=== PATIENT | male | born 1955 | race Caucasian/White ===

== ENCOUNTER 2022-04-27 10:30 | Emergency (ER) | payer MEDICARE, MEDICAID, SELFPAY ==
--- NOTE | ~2022-04-27 | CT_ITS ---
EXAMINATION: CT abdomen pelvis wo con DATE: 04/27/2022 13:26 INDICATION: Right flank and back pain TECHNIQUE: Computed tomography (CT) of the abdomen and pelvis was performed without intravenous contr ast. The dose-length product (DLP) was 1037.54 mGy-cm. Automated exposure control and iterative recon struction technique were employed. COMPARISON: None FINDINGS: The lung bases are clear. The heart size is normal. The gallbladder is surgically absent. T he liver, spleen, pancreas, and adrenal glands are normal. The left kidney is unremarkable. There is a 4 mm stone at the right ureterovesicular junction which causes mild right hydroureteronephrosis. Th ere is a small amount of fluid in the right retroperitoneum. Colonic diverticulosis is present withou t evidence of diverticulitis. No pathologically enlarged abdominal or pelvic lymph nodes are identifi ed. No free intraperitoneal gas or evidence of bowel obstruction. The appendix is normal. There is mo derate lumbar spondylosis. IMPRESSION: 1. 4 mm stone in the right ureterovesicular junction causing mild right hydroureteronephrosis. Small volume right retroperitoneal sites of unclear etiology. Reviewed, dictated and finalized at location L. 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 4 mm stone in the right ureterovesicular junction causing mild right hydrour eteronephrosis. Small volume right retroperitoneal sites of unclear etiology.
--- NOTE | ~2022-04-27 | CT_ITS ---
EXAMINATION: CT lumbar spine wo con DATE: 04/27/2022 12:01 INDICATION: Low back pain radiating down the right leg. TECHNIQUE: Computed tomography (CT) of the lumbar spine was performed without intravenous contrast. A utomated exposure control and iterative reconstruction technique were employed. The dose-length produ ct was 1139.16 mGy-cm. COMPARISON: None FINDINGS: There is mild right hydroureter. The distal ureter is not included. There is 9 degrees levo curvature of lumbar spine. There is 2 mm retrolisthesis of L2 on L3 and 6 mm anterolisthesis of L4 on L5. Vertebral body heights are normal. There is moderately decreased disc height at L1-L2 and L2-L3, mildly decreased disc height at L3-L4 and L4-L5, and moderately decreased disc height at L5-S1. The following disc levels are specifically discussed: L1-L2: The disc is bulging. There is mild bilateral facet joint osteoarthritis. There is moderate nando ateral neural foraminal stenosis. There is mild central canal stenosis. L2-L3: The disc is bulging. There is moderate bilateral facet joint osteoarthritis. There is moderate bilateral neural foraminal stenosis. There is mild central canal stenosis. L3-L4: The disc is bulging. There is moderate right and severe left facet joint osteoarthritis. There is moderate bilateral neural foraminal stenosis. There is mild central canal stenosis. L4-L5: The disc is bulging. There is severe bilateral facet joint osteoarthritis. There is moderate b ilateral neural foraminal stenosis. There is mild central canal stenosis. L5-S1: The disc is bulging. There is moderate right and severe left facet joint osteoarthritis. There is mild right and severe left neural foraminal stenosis. There is mild central canal stenosis. IMPRESSION: 1. Partially visualized mild right hydroureter. 2. Moderate lumbar spondylosis. Reviewed, dictated and finalized at location A. HANDISE ADJUSTMENT CLERK
[2022-04-27 10:39] VITALS: BP 193/78; PULSE 77; RESP 18; TEMP 36.1; O2SAT 99
--- NOTE | 2022-04-27 11:46 | ED.BACK ---
HPI - Back Pain/Injury General Chief Complaint: Back Pain/Injury Stated Complaint: back pain Time Seen by Provider: 04/27/22 11:32 Source: patient Mode of arrival: ambulatory Limitations: no limitations History of Present Illness HPI Narrative: This is a 66-year-old male that presents to the emergency department for low back pain ongoing since last night. No known recent injury or trauma. The pain is on the right side of his low back and radiates down his right leg. He took ibuprofen last night with some relief. He is not taking any pain medication yet today. The pain is sharp and worse with movement. Denies fevers, saddle anesthesia, or bowel/bladder incontinence. Related Data Allergies Allergy/AdvReac Type Severity Reaction Status Date / Time Penicillins Allergy Unknown Verified 04/27/22 11:24 Sulfa (Sulfonamide Allergy Unknown Verified 04/27/22 11:24 Antibiotics) acromycin Allergy Unknown Uncoded 04/27/22 11:24 Review of Systems Review of Systems: CONSTITUTIONAL: Denies fever SKIN: Denies rash MUSCULOSKELETAL: Reports back pain, joint pain, and myalgia. NEUROLOGIC: Denies numbness, or weakness. All systems reviewed & are unremarkable except as noted in HPI and below PMFSH Past Medical History Medical History (Updated 04/27/22 @ 14:42 by Thelma Manzano PA-C) No active medical problems Surgical History Surgical History (Updated 04/27/22 @ 11:46 by Thelma Manzano PA-C) History of cholecystectomy Social History Social History (Updated 04/27/22 @ 11:46 by Thelma Manzano PA-C) Smoking status: Never smoker Substance use: never Exam Narrative: GENERAL: Well-appearing, well-nourished, and in no acute distress. HEAD: Normocephalic, atraumatic. EYES: EOMI. CHEST: Clear to auscultation. No respiratory distress. No wheezes rales or rhonchi HEART: Regular rate and rhythm. No murmur heard. Normal peripheral pulses. BACK: No midline spinal tenderness EXTREMITIES: Normal range of motion. No edema. Strength equal in bilateral lower extremities (5/5). Normal DP pulses. SKIN: Warm, dry, no rash. NEURO: No focal deficits. Alert and oriented x3. PSYCH: Normal mood and affect Course Course Emergency Course: Patient and family updated on workup and agree with plan of care Consultations Consultation #1: Spoke with Dr. Lim about patient and workup who recommends antibiotics, urine strainer, flomax and follow up in clinic Date: 04/27/22 Vital Signs Vital signs: Vital Signs Temperature 97.0 F L 04/27/22 10:39 Pulse Rate 77 04/27/22 10:39 Respiratory Rate 18 04/27/22 10:39 Blood Pressure 193/78 H 04/27/22 10:39 Pulse Oximetry 99 04/27/22 10:39 Oxygen Delivery Room Air 04/27/22 10:39 Temperature 97.0 F L 04/27/22 10:39 Pulse Rate 75 04/27/22 14:07 Respiratory Rate 16 04/27/22 14:07 Blood Pressure 162/75 H 04/27/22 14:07 Pulse Oximetry 98 04/27/22 14:07 Oxygen Delivery Room Air 04/27/22 10:39 MDM - Back Pain/Injury MDM Narrative Medical decision making narrative: Patient presents to the ER for right sided low back pain ongoing since last night. No recent injury or trauma. Patient is neurovascularly intact. Blood pressure noted to be elevated on arrival. This did downtrend with treatment of pain. Patient instructed to continue to monitor. Initially I obtained a CT lumbar spine and as his pain was felt to be more musculoskeletal. This showed moderate lumbar spondylosis. Also showed a personally visualized mild right hydroureter. Further work-up was obtained. He is afebrile and nontoxic-appearing. CBC with mild leukocytosis to 11.6. Metabolic panel with elevation in creatinine of 1.6. Unsure of his baseline as I do not have any past labs to compare this to. Urine without evidence of infection. CT scan abdomen and pelvis shows a 4 mm stone in the right UVJ causing mild right hydroureteronephrosis. Also a small volume of right retroperitoneal flu
[2022-04-27] MEDS: ACETAMINOPHEN 500 MG TABLET 1000 MG PO (11:52)
[2022-04-27] MEDS: diazePAM INJ (*CRX) 10 MG/2 ML SYRINGE 5 MG IM (11:52)
[2022-04-27 12:40] LABS: Appearance Urine Clear (Clear); Bilirubin Urine Negative (Negative); Blood Urine Trace-lysed (Negative); Color Urine Yellow (Yellow); Glucose Urine UA Negative (Negative); Ketones Urine Trace mg/dL (Negative); Leukocyte Esterase Ur Negative LEU/UL (Negative); Nitrate Urine Negative (Negative); Protein Urine 2+ mg/dL (Negative); Specific Grav Ur >= 1.030 (1.001-1.035); Urobilinogen Urine 0.2 mg/dL (<2.0); pH Urine 5.5 (5.0-9.0)
[2022-04-27 12:41] LABS: Anion Gap 12 mmol/L (8-16); Blood Urea Nitrogen 15 mg/dL (9-20); Calcium 9.4 mg/dL (8.4-10.2); Carbon Dioxide 22 mmol/L (22-30); Chloride 104 mmol/L (98-107); Estimated CRCL calculation 45 ml/min; Estimated Glomerular Filt Rate 43; Glucose 146 mg/dL (65-110); Potassium 4.3 mmol/L (3.4-5.0); Sodium 138 mmol/L (137-145)
[2022-04-27 12:56] LABS: Mucus Urine Rare /lpf; RBC Urine 0-2 /hpf (0-2); Squamous Epithelial Cell Urine Rare /hpf (Few); WBC Urine 0-3 /hpf
[2022-04-27 12:57] LABS: Add Urine Microscopic? YES
[2022-04-27 12:58] LABS: Basophils Percent Auto 0.1 % (0.2-1.2); Hematocrit 48.9 % (42.0-52.0); Hemoglobin 16.5 g/dL (14.0-18.0); Immature Granulocyte Absolute 0.06 K/mm3 (0.00-0.031); Immature Granulocyte Percent A 0.5 % (0-0.5); Lymphocytes Percent Auto 5.2 % (18.3-44.2); Mean Corpuscular HGB Conc 33.7 g/dl (32-36); Mean Corpuscular Hemoglobin 29.6 pg (26-34); Mean Corpuscular Volume 87.8 fl (80-100); Mean Platelet Volume 9.9 fl (7.4-10.4); Monocytes Absolute Auto 0.4 K/mm3 (0.1-0.6); Monocytes Percent Auto 3.5 % (2.6-8.5); Neutrophils Absolute Auto 10.5 K/mm3 (1.3-6.7); Neutrophils Percent Auto 90.7 % (45.5-73.1); Platelet Count Result 190 k/mm3 (150-375); Red Blood Count 5.57 M/mm3 (4.6-6.20); Red Cell Distribution Width 13.7 % (11.5-14.5); White Blood Count 11.6 K/mm3 (4.5-10.0)
[2022-04-27 14:07] VITALS: BP 162/75; PULSE 75; RESP 16; O2SAT 98
== END 2022-04-27 14:59 | disposition home or self-care (01) ==
PROVIDERS: Emergency Provider Physician Assistant
DX: N13.2 Hydronephrosis with renal and ureteral calculous obstruction (principal); R18.8 Other ascites; M47.816 Spondylosis without myelopathy or radiculopathy, lumbar region
CPT/HCPCS: 36415; 72131; 74176; 80048; 81001; 85025; 96372; 99284; A9270; J3360

== ENCOUNTER 2022-04-28 21:28 | Emergency (ER) | payer MEDICARE, MEDICAID, SELFPAY ==
[2022-04-28 21:44] VITALS: BP 132/77; PULSE 88; RESP 18; TEMP 36.7
[2022-04-28 21:58] LABS: Appearance Urine Clear (Clear); Bilirubin Urine Negative (Negative); Blood Urine 1+ (Negative); Color Urine Yellow (Yellow); Glucose Urine UA Negative (Negative); Ketones Urine Negative (Negative); Leukocyte Esterase Ur Negative LEU/UL (Negative); Nitrate Urine Negative (Negative); Protein Urine 1+ mg/dL (Negative); Specific Grav Ur >= 1.030 (1.001-1.035)
[2022-04-28 22:03] LABS: Bacteria Urine Trace /hpf; Mucus Urine Rare /lpf; RBC Urine 0-2 /hpf (0-2); Squamous Epithelial Cell Urine Rare /hpf (Few)
[2022-04-28 22:06] LABS: Add Urine Microscopic? YES
--- NOTE | 2022-04-29 02:06 | ED.GENADULT ---
HPI - General Adult General Chief complaint: Back Pain/Injury Stated complaint: BILATERAL LOWER BACK PAIN,HX STONES Time Seen by Provider: 04/29/22 00:52 History of Present Illness HPI narrative: This is a 66-year-old male presenting ED with a chief complaint of flank pain. Patient was diagnosed with a 4 mm UVJ kidney stone yesterday. He was discharged with antibiotics, tamsulosin and [place]. Patient has been taking 1 [place] every 8 hours. The pain gets steadily worse throughout the day. His pain is currently at a 4 He denies fever, chills, nausea, vomiting, chest pain difficulty breathing or abdominal pain. The goals today's visit is pain control. Related Data Allergies Allergy/AdvReac Type Severity Reaction Status Date / Time Penicillins Allergy Unknown Verified 04/29/22 01:39 Sulfa (Sulfonamide Allergy Unknown Verified 04/29/22 01:39 Antibiotics) acromycin Allergy Unknown Uncoded 04/27/22 11:24 [facility] Past Medical History Medical History (Updated 04/29/22 @ 02:14 by Bradley Erickson MD) Kidney stone No active medical problems Surgical History Surgical History History of cholecystectomy Social History Social History Smoking status: Never smoker Substance use: never Exam Narrative: APPEARANCE: No apparent distress. Head: atraumatic. EYES: EOMI, NOSE: Atraumatic NECK: Trachea midline RESPIRATORY: No increased rate of breathing CARDIOVASCULAR: RRR, ABDOMINAL: Non-distended, no CVA tenderness MUSCULOSKELETAl: No obvious deformities NEURO: Alert. Moving 4/4 extremities SKIN:: Warm, dry. Normal color PSYCHIATRIC: Normal affect Course Vital Signs Vital signs: Vital Signs Temperature 98.0 F 04/28/22 21:44 Pulse Rate 88 04/28/22 21:44 Respiratory Rate 18 04/28/22 21:44 Blood Pressure 132/77 04/28/22 21:44 Temperature 98.0 F 04/28/22 21:44 Pulse Rate 88 04/28/22 21:44 Respiratory Rate 18 04/28/22 21:44 Blood Pressure 132/77 04/28/22 21:44 Medical Decision Making [facility] Narrative Medical decision making narrative: -Presentation: 66-year-old male presenting as a bounce-back for uncontrolled pain from kidney stones. -DDX includes but is not limited to: Kidney stone pain -Co-morbidities complicating care: none -Social determinants of health: patient lives with his -External Chart Review: review of previous ER notes and CT scans. -Hx from independent Sources: -Discussion of Management/Consultants: none -Independent interpretation of studies: Urinalysis showed 7-9 white blood cells HPF our field. Patient is on Cipro. Dx tests considered but not ordered: None -Procedures: none -Interventions: 15 mg Toradol, 5 mg [place] x2 -Shared decision making / Disposition: I reviewed the patient's previous imaging. He has a 4 mm stone at the UVJ. This stone will likely pass on its own. Patient will be given a short course of Motrin and has been instructed to increase the frequency of his [place]. He can also take Zofran for nausea. Patient could continue to follow-up with urology as scheduled. -RX Motrin 800 mg t.i.d., Zofran 4 mg odt t.i.d. Vital Signs Vital Signs: Vital Signs Temperature 98.0 F 04/28/22 21:44 Pulse Rate 88 04/28/22 21:44 Respiratory Rate 18 04/28/22 21:44 Blood Pressure 132/77 04/28/22 21:44 Temperature 98.0 F 04/28/22 21:44 Pulse Rate 88 04/28/22 21:44 Respiratory Rate 18 04/28/22 21:44 Blood Pressure 132/77 04/28/22 21:44 Lab Data Labs: Lab Results 04/28/22 Range/Units 21:50 Urine Color Yellow (Yellow) Urine Appearance Clear (Clear) Urine pH 5.0 (5.0-9.0) Ur Specific Sandy >= 1.030 (1.001-1.035) Urine Protein 1+ H (Negative) mg/dL Urine Glucose (UA) Negative (Negative) mg/dL Urine Ketones Negative (Negative) mg/dL Ur Blood (Ma
[2022-04-29] MEDS: HYDROcodone/acetaminophen (*CRX) 5-325 MG TABLET 2 TAB PO (02:15)
[2022-04-29] MEDS: KETOROLAC 15 MG/ML VIAL (*BKC) IV PUSH (02:16)
[2022-04-29 02:33] VITALS: BP 132/87; PULSE 72; RESP 17; O2SAT 99
== END 2022-04-29 02:34 | disposition home or self-care (01) ==
PROVIDERS: Emergency Provider Emergency Medicine
DX: N20.0 Calculus of kidney (principal)
CPT/HCPCS: 81001; 87086; 96374; 99284; A9270; J1885